=== PATIENT | male | born 1975 | race Caucasian/White ===

== ENCOUNTER 2023-04-01 15:42 | Emergency (ER) | payer OTHER ==
[2023-04-01] MEDS ORDERED: Iopamidol 755 Mg/ML 100 ML Bottle IVPUSH ONE (16:18)
[2023-04-01 16:33] VITALS: BP 139/93; PULSE 75
== END 2023-04-01 17:40 | disposition home or self-care (01) ==
LOC: CC.ED 15:42
DX: S27.9XXA Injury of unspecified intrathoracic organ, initial encounter (principal); M54.2 Cervicalgia; M54.6 Pain in thoracic spine; W23.1XXA Caught, crushed, jammed, or pinched between stationary objects, initial encounter
CPT/HCPCS: 71260; 72125; 99283; 99284; Q9967